=== PATIENT | female | born 2000 | race Two or more races ===

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

== ENCOUNTER 2022-09-19 13:45 | Inpatient (IN) | payer OTHER ==
[~2022-09-19] VITALS: Ht 149.9 cm; Wt 3.2 kg
[~2022-09-19 13:45] MED LIST changes: +BACTRIM DS TAB1 EACH PO; +ONDANSETRON ODT4 MG PO; +PRENATAL + DHA1 EAC1 PO
== END 2022-10-01 10:34 | disposition home or self-care (01) | DRG 788 ==
LOC: LDR 09-28 09:56 → OB/GYN 09-28 15:17
PROVIDERS: ADMIT Specialist; ATTEND Specialist
PROC: 4A1HXCZ Monitoring of Products of Conception, Cardiac Rate, External Approach (ICD-10-PCS; 2022-09-28)
PROC: 10D00Z1 Extraction of Products of Conception, Low, Open Approach (ICD-10-PCS; principal; 2022-09-28 12:15)
DX: O64.0XX0 Obstructed labor due to incomplete rotation of fetal head, not applicable or unspecified (principal); O99.824 Streptococcus B carrier state complicating childbirth; Z3A.39 39 weeks gestation of pregnancy; Z37.0 Single live birth; Z20.822 Contact with and (suspected) exposure to COVID-19

== ENCOUNTER 2022-09-24 15:23 | Outpatient (CLI) | payer OTHER | END 2022-09-24 15:44 | disposition home or self-care (01) | LOC: NST 15:23 | PROVIDERS: ATTEND Specialist | DX: O36.8130 Decreased fetal movements, third trimester, not applicable or unspecified (principal); Z3A.39 39 weeks gestation of pregnancy ==